=== PATIENT | female | born 1960 | race African-American/Black ===

== ENCOUNTER 2016-08-27 09:37 | Inpatient (IN) | payer OTHER ==
[2016-08-27 10:08] VITALS: BMI 31.1
--- NOTE | 2016-08-27 12:00 | HP ---
CIWA Score - CIWA Score Nausea/Vomitin Muscle Tremors: 3 Anxiety: 4-Mod. Anxious/Guarded Agitation: 4-Moderately Restless Paroxysmal Sweats: 3 Orientation: 0-Oriented Tacttile Disturbances: 1-Very Mild Itch/Numbness Auditory Disturbances: 0-None Visual Disturbances: 0-None Headache: 0-None Present CIWA-Ar Total Score: 18 Admission ROS BHS - HPI Chief Complaint: WITHDRAWAL SX Allergies/Adverse Reactions: Allergies Allergy/AdvReac Type Severity Reaction Status Date / Time Fish Containing Products Allergy Severe Swelling Verified 08/27/16 10:21 No Known Drug Allergies Allergy Verified 08/27/16 10:21 History of Present Illness: 56 YO F WITH LONG HISTORY OF DRUG AND ETOH DEPENDENCE IS ADMITTED FOR DETOX. PATIENT HAS BEEN IN PREVIOUS DETOX, REPORTS ONE YEAR OF SOBRIETY. Exam Limitations: No Limitations - Ebola screening Have you traveled outside of the country in the last 21 days: No (N) Have you had contact with anyone from an Ebola affected area: No Have you been sick,other than usual withdrawal symptoms: No Do you have a fever: No - Review of Systems Constitutional: Diaphoresis EENT: reports: No Symptoms Reported Respiratory: reports: Cough, Shortness of Breath (ASTHMA), Wheezing (ASTHMA) Cardiac: reports: No Symptoms Reported GI: reports: Diarrhea, Nausea, Vomiting, Abdominal cramping : reports: Frequency (CURRENTLY BEING TREATED FOR A UTI) Musculoskeletal: reports: Joint Pain, Muscle Pain, Neck Pain Integumentary: reports: Sweating Neuro: reports: Tingling, Tremors, Other (FREQUENT BLACK OUTS) Endocrine: reports: Excessive Sweating, Intolerance to Cold, Increased Hunger, Increased Thirst Hematology: reports: Blood Clots (HISTORY OF LEFT LEG DVT 1982) Psychiatric: reports: No Sypmtoms Reported Other Systems: Reviewed and Negative Patient History - Patient Medical History Hx Anemia: Yes (sickle cell trait ) Hx Asthma: Yes Hx Chronic Obstructive Pulmonary Disease (COPD): No Hx Cancer: No Hx Cardiac Disorders: No Hx Congestive Heart Failure: No Hx Hypertension: No Hx Hypercholesterolemia: Yes Hx Pacemaker: No HX Cerebrovascular Accident: No Hx Seizures: No Hx Dementia: No Hx Diabetes: Yes Hx Gastrointestinal Disorders: No Hx Liver Disease: No Hx Genitourinary Disorders: No Hx Sexually Transmitted Disorders: No Hx Renal Disease (ESRD): No Hx Thyroid Disease: No Hx Human Immunodeficiency Virus (HIV): No (NEGATIVE HX) Hx Hepatitis C: Yes (undetected. diagonosed 2001) Hx Depression: No Hx Suicide Attempt: Yes Hx Bipolar Disorder: Yes (PTSD) Hx Schizophrenia: Yes - Patient Surgical History Past Surgical History: Yes Hx Neurologic Surgery: No Hx Cataract Extraction: No Hx Cardiac Surgery: No Hx Lung Surgery: Yes (pneumothorax left lung 1982) Hx Breast Surgery: No Hx Breast Biopsy: No Hx Abdominal Surgery: No Hx Appendectomy: No Hx Cholecystectomy: No Hx Genitourinary Surgery: No Hx Section: No Hx Orthopedic Surgery: No Other Surgical History: umbilical hernia repair in 2003 Anesthesia Reaction: No - PPD History Previous Implant?: Yes Documented Results: Negative w/proof Implanted On Prior [facility] Admission?: Yes Date: 01/14/16 Results: 0 mm PPD to be Administered?: No - Reproductive History Patient is a Female of Child Bearing Age (11 -55 yrs old): No Last Menstrual Period: 03/24/08 Patient : No - Smoking Cessation Smoking history: Current every day smoker Have you smoked in the past 12 months: Yes Aproximately how many cigarettes per day: 10 Cigars Per Day: 0 Hx Chewing Tobacco Use: No Initiated information on smoking cessation: Yes 'Breaking Loose' booklet given: 08/27/16 - Substance & Tx. History Hx Alcohol Use: Yes Hx Substance Use: Yes Substance Use Type: Alcohol, Cocaine Hx Substance Use Treatment: Yes (DETOX AND REHAB) - Substances Abused Alcohol Route: Oral Frequency: Daily Amount used: 5th of tigist, 2 1/2 pint Vodka, 240z Cool light Age of first use: 14 Date of Last Use: 08/26/16 Cocaine Route: Smoking Frequency: Daily Amount used: $200 Age of first use: 24 Date of Last Use: 08/26/16 Family Disease History - Family Disease History Family Disease History: Diabetes: Mother (), Other: Father (), Mother, Brother Admission Physical Exam BHS - Vital Signs Vital Signs: Vital Signs - 24 hr 08/27/16 10:05 Temperature 97.2 F L Pulse Rate 80 Respiratory 16 Rate Blood Pressure 123/68 - Physical General Appearance: Yes: Within Normal Limits, Tremorous, Irritable, Sweating, Anxious HEENTM: Yes: Within Normal Limits Respiratory: Yes: Chest Non-Tender, Lungs Clear, Normal Breath Sounds Neck: Yes: Supple Breast: Yes: Breast Exam Deferred Cardiology: Yes: Regular Rhythm, Regular Rate, S1, S2 Abdominal: Yes: Non Tender, Soft, Protuberent Genitourinary: Yes: Within Normal Limits, Frequency Back: Yes: Within Normal Limits Musculoskeletal: Yes: Within Normal Limits Extremities: Yes: Tremors Neurological: Yes: Fully Oriented, Alert Integumentary: Yes: Diaphoresis Lymphatic: Yes: Within Normal Limits - Diagnostic (1) Alcohol dependence with uncomplicated withdrawal Current Visit: Yes Status: Chronic (2) Asthma Current Visit: Yes Status: Chronic Qualifiers: Asthma severity: mild intermittent Asthma complication type: uncomplicated Qualified Code(s): J45.20 - Mild intermittent asthma, uncomplicated (3) Cocaine dependence Current Visit: Yes Status: Chronic Qualifiers: Substance use status: uncomplicated Qualified Code(s): F14.20 - Cocaine dependence, uncomplicated (4) DM II (diabetes mellitus, type II), controlled Current Visit: Yes Status: Chronic Qualifiers: Diabetes mellitus complication status: without complication Diabetes mellitus technician terminal and repeater insulin use: with technician terminal and repeater use Qualified Code(s): E11.9 - Type 2 diabetes mellitus without complications; 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 of insulin (5) Hepatitis C Current Visit: No Status: Chronic Qualifiers: Viral hepatitis chronicity: chronic Hepatic coma status: without hepatic coma Qualified Code(s): B18.2 - Chronic viral hepatitis C (6) Nicotine dependence Current Visit: Yes Status: Chronic Qualifiers: Nicotine product type: cigarettes Substance use status: uncomplicated Qualified Code(s): F17.210 - Nicotine dependence, cigarettes, uncomplicated (7) Obesity (BMI 30.0-34.9) Current Visit: Yes Status: Chronic Cleared for Admission S - Detox or Rehab [facility] Level of Care: Medically Managed Detox Regimen/Protocol: Librium [facility] Breath Alcohol Content Breath Alcohol Content: 0 Urine Pregancy Test - Result Urine Test Results: Negative- NO Line Present Urine Drug Screen - Results Drug Screen Negative: No
[2016-08-27] MEDS ORDERED: guaiFENesin/D-METHORPHAN HB 10 ML UNIT-DOSE CUPS PO PRN (12:21)
[2016-08-27] MEDS ORDERED: MENTHOL/PHENOL 1 EACH UD MM PRN (12:21)
[2016-08-27] MEDS ORDERED: hydrOXYzine PAMOATE 50 MG CAPSULE (FP) PO PRN (12:21)
[2016-08-27] MEDS ORDERED: NICOTINE POLACRILEX 2 MG GUM BC PRN (12:21)
[2016-08-27] MEDS ORDERED: IBUPROFEN 400 MG TABLET (FP) PO PRN (12:21)
[2016-08-27] MEDS ORDERED: LOPERAMIDE HCL 2 MG CAPSULE PO PRN (12:21)
[2016-08-27] MEDS ORDERED: chlordiazePOXIDE HCL 25 MG CAPSULE PO PRN (12:21)
[2016-08-27] MEDS ORDERED: MAG HYDROX/AL HYDROX/SIMETH 30 ML UNIT-DOSE CUP PO PRN (12:21)
[2016-08-27] MEDS ORDERED: MAGNESIUM HYDROX 2400MG/30ML ORAL SUSPENSION 30 ML CUP PO PRN (12:21)
[2016-08-27] MEDS ORDERED: MAGNESIUM CITRATE 300 ML BOTTLE PO PRN (12:21)
[2016-08-27] MEDS ORDERED: P-EPHED 60MG/TRIPROLIDI 2.5MG TABLET PO PRN (12:21)
[2016-08-27] MEDS ORDERED: ALBUTEROL SO4 6.7 GM HFA INHALER IH PRN (12:26)
[2016-08-27] MEDS ORDERED: chlordiazePOXIDE HCL 25 MG CAPSULE PO ONE (12:45)
[2016-08-27] MEDS: NICOTINE 21 MG/24 HOURS TOPICAL PATCH TD SCH (13:49)
--- NOTE | 2016-08-27 14:47 | PN ---
[facility] Progress Note Note: Psychiatry Attending's note: Patient refused to talk to this racebook writer. Made aware of request fo psychiatric evaluation. "I don't have to talk to you.I don't need a psychiatrist." Nursing staff is made aware.
[2016-08-27] MEDS ORDERED: INSULIN (NOVOLOG) ASPART 100 UNITS/ML 10ML VIAL ONE ×2 (17:00→21:10)
[2016-08-27] MEDS ORDERED: INSULIN (NOVOLOG MIX 70/30) 100 UNITS/ML MDV SQ ONE (17:14)
[2016-08-27] MEDS: metFORMIN HCL 500 MG TABLET (FP) PO SCH (17:37)
[2016-08-27] MEDS: chlordiazePOXIDE HCL 25 MG CAPSULE PO SCH ×2 (17:38→22:00)
[2016-08-27] MEDS: INSULIN (NOVOLOG MIX 70/30) 100 UNITS/ML MDV SQ SCH (17:42)
[2016-08-27] MEDS: INSULIN (NOVOLOG) ASPART 100 UNITS/ML 10ML VIAL SQ SCH ×2 (17:43→21:14)
[2016-08-27] MEDS: SULFAMETHOXAZOLE/TRIMETHOPRIM 800MG/160MG D.S. TABLET PO SCH (21:12)
[2016-08-27] MEDS: THIAMINE HCL 100 MG TABLET (FP) PO SCH (21:13)
[2016-08-27] MEDS: ATORVASTATIN CA 40 MG TABLET (FP) PO SCH (21:13)
[2016-08-27 22:52] LABS: URINE APPEARANCE CLEAR; URINE BILIRUBIN NEGATIVE (NEGATIVE); URINE COLOR LTYELLOW; URINE GLUCOSE (UA) 3+ (NEGATIVE); URINE KETONE TRACE (NEGATIVE); URINE NITRITE NEGATIVE (NEGATIVE); URINE PROTEIN NEGATIVE (NEGATIVE); URINE UROBILINOGEN NEGATIVE E.U./dl (0.2-1.0)
[2016-08-27 22:57] LABS: URINE BLOOD 1+ (NEGATIVE); URINE LEUK ESTERASE TRACE (NEGATIVE)
[2016-08-27 23:04] LABS: URINE BACTERIA RARE /hpf (NONE SEEN); URINE HYALINE CAST 1 /lpf; URINE MUCUS RARE; URINE RBC 1 /hpf (0-3); URINE WBC <1 /hpf (3-5)
[2016-08-28] MEDS: chlordiazePOXIDE HCL 25 MG CAPSULE PO SCH ×4 (05:27→23:13)
[2016-08-28] MEDS ORDERED: INSULIN (NOVOLOG) ASPART 100 UNITS/ML 10ML VIAL ONE ×3 (07:19→16:45)
[2016-08-28] MEDS: INSULIN (NOVOLOG MIX 70/30) 100 UNITS/ML MDV SQ SCH ×2 (07:48→16:55)
[2016-08-28] MEDS: metFORMIN HCL 500 MG TABLET (FP) PO SCH ×2 (07:48→16:51)
[2016-08-28] MEDS: INSULIN (NOVOLOG) ASPART 100 UNITS/ML 10ML VIAL SQ SCH ×3 (07:49→16:56)
--- NOTE | 2016-08-28 10:22 | PN ---
S CIWA - CIWA Score Nausea/Vomitin-No Nausea/No Vomiting Muscle Tremors: 4-Moderate,w/Arms Extend Anxiety: 4-Mod. Anxious/Guarded Agitation: 4-Moderately Restless Paroxysmal Sweats: 3 Orientation: 0-Oriented Tacttile Disturbances: 0-None Auditory Disturbances: 0-None Visual Disturbances: 0-None Headache: 1-Very Mild CIWA-Ar Total Score: 16 BHS Progress Note (SOAP) Subjective: irritable agitation anxiety sweats interrupted sleep Objective: 08/28/16 10:21 Vital Signs Temperature 96.3 F L 08/28/16 06:53 Pulse Rate 63 08/28/16 06:53 Respiratory Rate 16 08/28/16 06:53 Blood Pressure 119/66 08/28/16 06:53 O2 Sat by Pulse Oximetry (%) Laboratory Tests 08/27/16 08/28/16 22:40 05:26 POC Glucometer 313 Urine Color Ltyellow Urine Appearance Clear Urine pH 6.0 Ur Specific [place] 1.020 Urine Protein Negative Urine Glucose (UA) 3+ H Urine Ketones Trace H Urine Blood 1+ H Urine Nitrite Negative Urine Bilirubin Negative Urine Urobilinogen Negative Ur Leukocyte Esterase Trace H Urine RBC 1 Urine WBC <1 Ur Epithelial Cells Rare Urine Bacteria Rare Hyaline Casts 1 Urine Mucus Rare labs pending awake/alert ambulating no acute distress Assessment: 08/28/16 10:22 withdrawal sx Plan: continue detox increase fluids labs pending
[2016-08-28] MEDS: PRENATAL VITAMINS W/ FOLIC ACID TABLET (FP) PO SCH (10:44)
[2016-08-28] MEDS: SULFAMETHOXAZOLE/TRIMETHOPRIM 800MG/160MG D.S. TABLET PO SCH ×2 (10:44→21:40)
[2016-08-28] MEDS: ASPIRIN COATED 81 MG TABLET.EC PO SCH (10:44)
[2016-08-28] MEDS: NICOTINE 21 MG/24 HOURS TOPICAL PATCH TD SCH (10:48)
[2016-08-28 10:59] LABS: MCH 30.6 pg (25.7-33.7); MCHC 33.8 g/dl (32.0-36.0); MEAN CELL VOLUME 90.5 fl (80-96); MEAN PLT VOLUME 8.5 fl (7.5-11.1); PLATELET COUNT 230 K/MM3 (134-434); RDW 14.1 % (11.6-15.6); WHITE BLOOD COUNT 4.6 K/mm3 (4.0-10.0)
[2016-08-28 11:33] LABS: ALBUMIN 2.9 g/dl (3.4-5.0); ALK PHOS 77 U/L (45-117); ANION GAP 4 (8-16); BILIRUBIN,TOTAL 0.4 mg/dL (0.2-1.0); CALCIUM 8.3 mg/dL (8.5-10.1); CO2 26 mmol/L (21-32); CREATININE 0.9 mg/dL (0.55-1.02); SGOT/AST 10 U/L (15-37); SGPT/ALT 16 U/L (12-78); TOT PROT 5.9 g/dl (6.4-8.2)
[2016-08-28 12:01] LABS: GLUCOSE,RANDOM 359 mg/dL (74-106)
--- NOTE | 2016-08-28 13:09 | PN ---
[facility] Progress Note Note: Psychiatry Attending's note: Renewed attempt for psychiatric evaluation. Patient refused.Nursing staff made aware.
[2016-08-28] MEDS: THIAMINE HCL 100 MG TABLET (FP) PO SCH (21:40)
[2016-08-28] MEDS: ATORVASTATIN CA 40 MG TABLET (FP) PO SCH (21:40)
[2016-08-28] MEDS: diphenhydrAMINE HCL 50 MG CAPSULE PO PRN (21:42)
[2016-08-29] MEDS: chlordiazePOXIDE HCL 25 MG CAPSULE PO SCH ×2 (05:46→11:04)
[2016-08-29] MEDS: metFORMIN HCL 500 MG TABLET (FP) PO SCH ×2 (07:00→17:52)
[2016-08-29] MEDS: INSULIN (NOVOLOG MIX 70/30) 100 UNITS/ML MDV SQ SCH ×2 (07:00→17:53)
[2016-08-29] MEDS ORDERED: INSULIN (NOVOLOG) ASPART 100 UNITS/ML 10ML VIAL ONE (08:51)
[2016-08-29] MEDS: INSULIN (NOVOLOG) ASPART 100 UNITS/ML 10ML VIAL SQ SCH ×3 (08:56→16:53)
--- NOTE | 2016-08-29 10:37 | PN ---
[facility] CIWA - CIWA Score Nausea/Vomitin Muscle Tremors: 3 Anxiety: 3 Agitation: 3 Paroxysmal Sweats: 3 Orientation: 0-Oriented Tacttile Disturbances: 2-Mild Itch/Numbness/Burn Auditory Disturbances: 0-None Visual Disturbances: 0-None Headache: 0-None Present CIWA-Ar Total Score: 16 S Progress Note (SOAP) Subjective: interrupted sleep , sweats , shakes, joint pains Objective: 08/29/16 10:34 Vital Signs Temperature 97.5 F L 08/29/16 06:36 Pulse Rate 60 08/29/16 06:36 Respiratory Rate 16 08/29/16 06:36 Blood Pressure 141/71 08/29/16 06:36 O2 Sat by Pulse Oximetry (%) Laboratory Tests 08/27/16 08/27/16 08/27/16 10:47 16:40 21:05 WBC RBC Hgb Hct MCV MCHC RDW Plt Count MPV Sodium Potassium Chloride Carbon Dioxide Anion Gap BUN Creatinine Creat Clearance w eGFR POC Glucometer 518 > 600 156 Random Glucose Calcium Total Bilirubin AST ALT Alkaline Phosphatase Total Protein Albumin Urine Color Urine Appearance Urine pH Ur Specific [place] Urine Protein Urine Glucose (UA) Urine Ketones Urine Blood Urine Nitrite Urine Bilirubin Urine Urobilinogen Ur Leukocyte Esterase Urine RBC Urine WBC Ur Epithelial Cells Urine Bacteria Hyaline Casts Urine Mucus RPR Titer 08/27/16 08/28/16 08/28/16 22:40 05:26 06:30 WBC 4.6 D RBC 3.57 L Hgb 10.9 Hct 32.3 L MCV 90.5 MCHC 33.8 RDW 14.1 Plt Count 230 MPV 8.5 Sodium Potassium Chloride Carbon Dioxide Anion Gap BUN Creatinine Creat Clearance w eGFR POC Glucometer 313 Random Glucose Calcium Total Bilirubin AST ALT Alkaline Phosphatase Total Protein Albumin Urine Color Ltyellow Urine Appearance Clear Urine pH 6.0 Ur Specific [place] 1.020 Urine Protein Negative Urine Glucose (UA) 3+ H Urine Ketones Trace H Urine Blood 1+ H Urine Nitrite Negative Urine Bilirubin Negative Urine Urobilinogen Negative Ur Leukocyte Esterase Trace H Urine RBC 1 Urine WBC <1 Ur Epithelial Cells Rare Urine Bacteria Rare Hyaline Casts 1 Urine Mucus Rare RPR Titer 08/28/16 08/28/16 08/28/16 06:30 06:30 11:39 WBC RBC Hgb Hct MCV MCHC RDW Plt Count MPV Sodium 136 Potassium 4.4 Chloride 106 Carbon Dioxide 26 Anion Gap 4 L BUN 13 Creatinine 0.9 D Creat Clearance w eGFR > 60 POC Glucometer 163 Random Glucose 359 H* Calcium 8.3 L Total Bilirubin 0.4 AST 10 L ALT 16 D Alkaline Phosphatase 77 Total Protein 5.9 L Albumin 2.9 L Urine Color Urine Appearance Urine pH Ur Specific [place] Urine Protein Urine Glucose (UA) Urine Ketones Urine Blood Urine Nitrite Urine Bilirubin Urine Urobilinogen Ur Leukocyte Esterase Urine RBC Urine WBC Ur Epithelial Cells Urine Bacteria Hyaline Casts Urine Mucus RPR Titer Nonreactive 08/28/16 08/28/16 16:37 21:35 WBC RBC Hgb Hct MCV MCHC RDW Plt Count MPV Sodium Potassium Chloride Carbon Dioxide Anion Gap BUN Creatinine Creat Clearance w eGFR POC Glucometer 358 180 Random Glucose Calcium Total Bilirubin AST ALT Alkaline Phosphatase Total Protein Albumin Urine Color Urine Appearance Urine pH Ur Specific [place] Urine Protein Urine Glucose (UA) Urine Ketones Urine Blood Urine Nitrite Urine Bilirubin Urine Urobilinogen Ur Leukocyte Esterase Urine RBC Urine WBC Ur Epithelial Cells Urine Bacteria Hyaline Casts Urine Mucus RPR Titer pt aox3 in nad lying in bed 08/29/16 10:36 Assessment: 08/29/16 10:35 withdrawl sxs Plan: cont. detox increase fluids motrin prn flerxeril 10mg tid /prn
[2016-08-29] MEDS: SULFAMETHOXAZOLE/TRIMETHOPRIM 800MG/160MG D.S. TABLET PO SCH ×2 (11:04→22:11)
[2016-08-29] MEDS: ASPIRIN COATED 81 MG TABLET.EC PO SCH (11:04)
[2016-08-29] MEDS: PRENATAL VITAMINS W/ FOLIC ACID TABLET (FP) PO SCH (11:05)
[2016-08-29] MEDS: NICOTINE 21 MG/24 HOURS TOPICAL PATCH TD SCH (11:05)
[2016-08-29] MEDS: chlordiazePOXIDE 5 MG CAPSULE PO SCH ×2 (17:52→22:10)
[2016-08-29] MEDS: ATORVASTATIN CA 40 MG TABLET (FP) PO SCH (22:09)
[2016-08-29] MEDS: THIAMINE HCL 100 MG TABLET (FP) PO SCH (22:10)
[2016-08-29] MEDS: CYCLOBENZAPRINE HCL 10 MG TABLET (FP) PO PRN (22:10)
[2016-08-30] MEDS: chlordiazePOXIDE 5 MG CAPSULE PO SCH ×2 (05:53→11:21)
[2016-08-30] MEDS ORDERED: INSULIN (NOVOLOG) ASPART 100 UNITS/ML 10ML VIAL ONE (09:03)
[2016-08-30] MEDS: metFORMIN HCL 500 MG TABLET (FP) PO SCH ×2 (09:04→17:32)
[2016-08-30] MEDS: INSULIN (NOVOLOG) ASPART 100 UNITS/ML 10ML VIAL SQ SCH ×3 (09:05→17:34)
[2016-08-30] MEDS: INSULIN (NOVOLOG MIX 70/30) 100 UNITS/ML MDV SQ SCH ×2 (09:05→17:34)
--- NOTE | 2016-08-30 11:18 | PN ---
BHS Progress Note (SOAP) Subjective: irritable agitation sweats I dont want my finger poked so many times. Objective: 08/30/16 11:11 Vital Signs Temperature 97.7 F 08/30/16 10:11 Pulse Rate 62 08/30/16 10:11 Respiratory Rate 20 08/30/16 10:11 Blood Pressure 90/60 08/30/16 10:11 O2 Sat by Pulse Oximetry (%) Laboratory Tests 08/27/16 08/27/16 08/27/16 10:47 16:40 21:05 WBC RBC Hgb Hct MCV MCHC RDW Plt Count MPV Sodium Potassium Chloride Carbon Dioxide Anion Gap BUN Creatinine Creat Clearance w eGFR POC Glucometer 518 > 600 156 Random Glucose Calcium Total Bilirubin AST ALT Alkaline Phosphatase Total Protein Albumin Urine Color Urine Appearance Urine pH Ur Specific [place] Urine Protein Urine Glucose (UA) Urine Ketones Urine Blood Urine Nitrite Urine Bilirubin Urine Urobilinogen Ur Leukocyte Esterase Urine RBC Urine WBC Ur Epithelial Cells Urine Bacteria Hyaline Casts Urine Mucus RPR Titer 08/27/16 08/28/16 08/28/16 22:40 05:26 06:30 WBC 4.6 D RBC 3.57 L Hgb 10.9 Hct 32.3 L MCV 90.5 MCHC 33.8 RDW 14.1 Plt Count 230 MPV 8.5 Sodium Potassium Chloride Carbon Dioxide Anion Gap BUN Creatinine Creat Clearance w eGFR POC Glucometer 313 Random Glucose Calcium Total Bilirubin AST ALT Alkaline Phosphatase Total Protein Albumin Urine Color Ltyellow Urine Appearance Clear Urine pH 6.0 Ur Specific [place] 1.020 Urine Protein Negative Urine Glucose (UA) 3+ H Urine Ketones Trace H Urine Blood 1+ H Urine Nitrite Negative Urine Bilirubin Negative Urine Urobilinogen Negative Ur Leukocyte Esterase Trace H Urine RBC 1 Urine WBC <1 Ur Epithelial Cells Rare Urine Bacteria Rare Hyaline Casts 1 Urine Mucus Rare RPR Titer 08/28/16 08/28/16 08/28/16 06:30 06:30 11:39 WBC RBC Hgb Hct MCV MCHC RDW Plt Count MPV Sodium 136 Potassium 4.4 Chloride 106 Carbon Dioxide 26 Anion Gap 4 L BUN 13 Creatinine 0.9 D Creat Clearance w eGFR > 60 POC Glucometer 163 Random Glucose 359 H* Calcium 8.3 L Total Bilirubin 0.4 AST 10 L ALT 16 D Alkaline Phosphatase 77 Total Protein 5.9 L Albumin 2.9 L Urine Color Urine Appearance Urine pH Ur Specific [place] Urine Protein Urine Glucose (UA) Urine Ketones Urine Blood Urine Nitrite Urine Bilirubin Urine Urobilinogen Ur Leukocyte Esterase Urine RBC Urine WBC Ur Epithelial Cells Urine Bacteria Hyaline Casts Urine Mucus RPR Titer Nonreactive 08/28/16 08/28/16 08/29/16 16:37 21:35 06:39 WBC RBC Hgb Hct MCV MCHC RDW Plt Count MPV Sodium Potassium Chloride Carbon Dioxide Anion Gap BUN Creatinine Creat Clearance w eGFR POC Glucometer 358 180 299 Random Glucose Calcium Total Bilirubin AST ALT Alkaline Phosphatase Total Protein Albumin Urine Color Urine Appearance Urine pH Ur Specific [place] Urine Protein Urine Glucose (UA) Urine Ketones Urine Blood Urine Nitrite Urine Bilirubin Urine Urobilinogen Ur Leukocyte Esterase Urine RBC Urine WBC Ur Epithelial Cells Urine Bacteria Hyaline Casts Urine Mucus RPR Titer 08/29/16 08/29/16 08/30/16 11:47 16:21 08:59 WBC RBC Hgb Hct MCV MCHC RDW Plt Count MPV Sodium Potassium Chloride Carbon Dioxide Anion Gap BUN Creatinine Creat Clearance w eGFR POC Glucometer 109 223 192 Random Glucose Calcium Total Bilirubin AST ALT Alkaline Phosphatase Total Protein Albumin Urine Color Urine Appearance Urine pH Ur Specific [place] Urine Protein Urine Glucose (UA) Urine Ketones Urine Blood Urine Nitrite Urine Bilirubin Urine Urobilinogen Ur Leukocyte Esterase Urine RBC Urine WBC Ur Epithelial Cells Urine Bacteria Hyaline Casts Urine Mucus RPR Titer awake/alert ambulating no acute distress Assessment: 08/30/16 11:13 withdrawal sx Plan: continue detox increase fluids encouraged to comply to medication regimen and MD orders. d/c in am
[2016-08-30] MEDS: PRENATAL VITAMINS W/ FOLIC ACID TABLET (FP) PO SCH (11:20)
[2016-08-30] MEDS: SULFAMETHOXAZOLE/TRIMETHOPRIM 800MG/160MG D.S. TABLET PO SCH ×2 (11:21→23:05)
[2016-08-30] MEDS: NICOTINE 21 MG/24 HOURS TOPICAL PATCH TD SCH (11:21)
[2016-08-30] MEDS: ASPIRIN COATED 81 MG TABLET.EC PO SCH (11:21)
[2016-08-30] MEDS: chlordiazePOXIDE HCL 10 MG CAPSULE PO SCH ×2 (17:32→23:06)
[2016-08-30] MEDS: THIAMINE HCL 100 MG TABLET (FP) PO SCH (23:06)
[2016-08-30] MEDS: ATORVASTATIN CA 40 MG TABLET (FP) PO SCH (23:06)
[2016-08-31] MEDS: diphenhydrAMINE HCL 50 MG CAPSULE PO PRN (01:24)
[2016-08-31] MEDS: chlordiazePOXIDE HCL 10 MG CAPSULE PO SCH (05:39)
[2016-08-31] MEDS: ACETAMINOPHEN 325 MG TABLET (FP) PO PRN ×2 (05:40→10:22)
[2016-08-31] MEDS ORDERED: INSULIN (NOVOLOG) ASPART 100 UNITS/ML 10ML VIAL ONE (06:41)
[2016-08-31] MEDS: metFORMIN HCL 500 MG TABLET (FP) PO SCH (06:52)
[2016-08-31] MEDS: INSULIN (NOVOLOG MIX 70/30) 100 UNITS/ML MDV SQ SCH (07:04)
[2016-08-31] MEDS: INSULIN (NOVOLOG) ASPART 100 UNITS/ML 10ML VIAL SQ SCH (07:30)
--- NOTE | 2016-08-31 08:19 | DS ---
[facility] Detox Discharge Summary Admission Date: 08/27/16 Discharge Date: 08/31/16 - History Present History: Alcohol Dependence, Cocaine Dependence - Physical Exam Results Vital Signs: Vital Signs Temperature 97.7 F 08/31/16 06:00 Pulse Rate 78 08/31/16 06:00 Respiratory Rate 18 08/31/16 06:00 Blood Pressure 100/69 08/31/16 06:00 O2 Sat by Pulse Oximetry (%) - Treatment Hospital Course: Detox Protocol Followed, Detoxed Safely, Responded well, Discharged Condition Good, Rehab Referral Accepted - Medication Discharge Medications: Ambulatory Orders Aspirin [ASA -] 81 mg PO DAILY #30 tab.chew 07/02/15 Albuterol Sulfate Inhaler - [Ventolin HFA Inhaler -] 2 inh PO Q4H PRN 03/30/16 Atorvastatin Ca [Lipitor] 40 mg PO DAILY 03/30/16 Metformin HCl [Glucophage -] 500 mg PO BID 03/30/16 Insulin NPH Hum/Reg Insulin Hm [Humulin 70-30 Vial] 20 unit SQ ACDIN 06/28/16 Insulin NPH Hum/Reg Insulin Hm [Humulin 70-30 Vial] 40 unit SQ AM 06/28/16 Sulfamethoxazole/Trimethoprim [Bactrim Ds -] 1 tab PO BID 08/27/16 - Diagnosis (1) Alcohol dependence with uncomplicated withdrawal Current Visit: Yes Status: Chronic (2) Asthma Current Visit: Yes Status: Chronic Qualifiers: Asthma severity: mild intermittent Asthma complication type: uncomplicated Qualified Code(s): J45.20 - Mild intermittent asthma, uncomplicated (3) Cocaine dependence Current Visit: Yes Status: Chronic Qualifiers: Substance use status: uncomplicated Qualified Code(s): F14.20 - Cocaine dependence, uncomplicated (4) DM II (diabetes mellitus, type II), controlled Current Visit: Yes Status: Chronic Qualifiers: Diabetes mellitus complication status: without complication Diabetes mellitus fpc insulin use: with fpc use Qualified Code(s): E11.9 - Type 2 diabetes mellitus without complications (5) Nicotine dependence Current Visit: Yes Status: Chronic Qualifiers: Nicotine product type: cigarettes Substance use status: uncomplicated Qualified Code(s): F17.210 - Nicotine dependence, cigarettes, uncomplicated (6) Obesity (BMI 30.0-34.9) Current Visit: Yes Status: Chronic (7) Arthritis Current Visit: No Status: Chronic (8) Hepatitis C Current Visit: No Status: Chronic Qualifiers: Viral hepatitis chronicity: chronic Hepatic coma status: without hepatic coma Qualified Code(s): B18.2 - Chronic viral hepatitis C (9) PTSD (post-traumatic stress disorder) Current Visit: No Status: Chronic (10) Schizoaffective disorder Current Visit: No Status: Suspected (11) Schizoaffective disorder, bipolar type Current Visit: No Status: Suspected (12) Sickle cell trait Current Visit: No Status: Suspected - AMA Did Patient Leave Against Medical Advice: No
[2016-08-31] MEDS: SULFAMETHOXAZOLE/TRIMETHOPRIM 800MG/160MG D.S. TABLET PO SCH (10:21)
[2016-08-31] MEDS: PRENATAL VITAMINS W/ FOLIC ACID TABLET (FP) PO SCH (10:21)
[2016-08-31] MEDS: CYCLOBENZAPRINE HCL 10 MG TABLET (FP) PO PRN (10:21)
[2016-08-31] MEDS: ASPIRIN COATED 81 MG TABLET.EC PO SCH (10:21)
[2016-08-31 10:22] VITALS: BP 96/69; PULSE 76; TEMP 98.1
== END 2016-08-31 10:41 | disposition home or self-care (01) | DRG 774 ==
LOC: YASAS 09:37 → Y6N 11:17
PROVIDERS: ADMIT Internal Medicine; ATTEND Internal Medicine
PROC: HZ2ZZZZ Detoxification Services for Substance Abuse Treatment (ICD-10-PCS; principal; 2016-08-27)
DX: F10.230 Alcohol dependence with withdrawal, uncomplicated (principal); F14.20 Cocaine dependence, uncomplicated; F17.210 Nicotine dependence, cigarettes, uncomplicated; F43.10 Post-traumatic stress disorder, unspecified; F25.0 Schizoaffective disorder, bipolar type; J45.20 Mild intermittent asthma, uncomplicated; E11.9 Type 2 diabetes mellitus without complications; Z79.4 Long term (current) use of insulin; D57.3 Sickle-cell trait; E66.9 Obesity, unspecified; Z68.31 Body mass index [BMI] 31.0-31.9, adult; M12.9 Arthropathy, unspecified; B18.2 Chronic viral hepatitis C
CPT/HCPCS: 36415; 80053; 81003; 81015; 85027; 86593; 93005; 93010

== ENCOUNTER 2016-10-30 12:15 | Inpatient (IN) | payer OTHER ==
[2016-10-30 12:32] VITALS: BMI 31.2
--- NOTE | 2016-10-30 14:54 | HP ---
CIWA Score - CIWA Score Nausea/Vomitin (NAUSEA/DIARRHEA) Muscle Tremors: 3 Anxiety: 4-Mod. Anxious/Guarded Agitation: 3 Paroxysmal Sweats: 1-Minimal Palms Moist Orientation: 0-Oriented Tacttile Disturbances: 3-Moderate Itch/Numb/Burn Auditory Disturbances: 0-None Visual Disturbances: 0-None Headache: 2-Mild CIWA-Ar Total Score: 21 Admission ROS [facility] - HPI Chief Complaint: DETOX TX FOR ALCOHOL DEPENDENCE Allergies/Adverse Reactions: Allergies Allergy/AdvReac Type Severity Reaction Status Date / Time Fish Containing Products Allergy Severe Swelling Verified 10/30/16 13:39 No Known Drug Allergies Allergy Verified 10/30/16 13:39 History of Present Illness: 56 Y/O AA/FEMALE WITH A HX OF ALCOHOL AND COCAINE DEPENDENCE SEEKING DETOX [place] Exam Limitations: No Limitations - Ebola screening Have you traveled outside of the country in the last 21 days: No Have you had contact with anyone from an Ebola affected area: No Have you been sick,other than usual withdrawal symptoms: No Do you have a fever: No - Review of Systems Constitutional: Chills, Loss of Appetite, Night Sweats, Changes in sleep, Unintentional Wgt. Loss EENT: reports: Cataracts (OR GLAUCOMA BUT NOT SURE .), Blurred Vision, Nose Congestion, Sinus Pressure, Dental Problems (BROKEN TEETH/CAVITY/DECAY) Respiratory: reports: Shortness of Breath (HX ASTHMA), Wheezing Cardiac: reports: Chest Pain (SOMETIMES), Chest Tightness GI: reports: Constipated, Diarrhea, Nausea, Abdominal cramping : reports: No Symptoms Reported Musculoskeletal: reports: Back Pain, Joint Pain, Muscle Pain, Other (ARTHRITIS BOTH KNEES) Integumentary: reports: No Symptoms Reported Neuro: reports: Headache, Tremors, Unsteady Gait (KNEES LOCK UP SOMETIMES), Dizziness Endocrine: reports: Increased Hunger, Increased Thirst Hematology: reports: Anemia (SICKLE CELL TRAIT), Blood Clots (HX DVT IN 1982.... STOPPED COUMADIN 10 YRS AGO.), Easy Bruising Psychiatric: reports: Orientated x3, Anxious, Depressed (HX BIPOLAR/ SCHIZOAFFECTIVE DISORDER/PTSD) Other Systems: Reviewed and Negative Patient History - Patient Medical History Hx Anemia: Yes (sickle cell trait ) Hx Asthma: Yes Hx Chronic Obstructive Pulmonary Disease (COPD): No Hx Cancer: No Hx Cardiac Disorders: No Hx Congestive Heart Failure: No Hx Hypertension: No (BUT ON/OFF) Hx Hypercholesterolemia: Yes Hx Pacemaker: No HX Cerebrovascular Accident: No Hx Seizures: No Hx Dementia: No Hx Diabetes: Yes (On meds...METFORMIN 500 MG PO BID) Hx Gastrointestinal Disorders: No Hx Liver Disease: No Hx Genitourinary Disorders: No Hx Sexually Transmitted Disorders: No Hx Renal Disease (ESRD): No Hx Thyroid Disease: No Hx Human Immunodeficiency Virus (HIV): No (NEGATIVE HX) Hx Hepatitis C: Yes (undetected. diagonosed 2001) Hx Depression: Yes (NOT ON MEDS) Hx Suicide Attempt: No Hx Bipolar Disorder: Yes (PTSD) Hx Schizophrenia: Yes (SCHIZOAFFECTIVE) - Patient Surgical History Past Surgical History: Yes Hx Neurologic Surgery: No Hx Cataract Extraction: No Hx Cardiac Surgery: No Hx Lung Surgery: Yes (pneumothorax left lung 1982) Hx Breast Surgery: No Hx Breast Biopsy: No Hx Abdominal Surgery: No Hx Appendectomy: No Hx Cholecystectomy: No Hx Genitourinary Surgery: No Hx Section: No Hx Orthopedic Surgery: No Other Surgical History: umbilical hernia repair in 2003 Anesthesia Reaction: No - PPD History Previous Implant?: Yes Documented Results: Negative w/proof Implanted On Prior [facility] Admission?: Yes Date: 01/14/16 Results: 0 MM PPD to be Administered?: No - Reproductive History Patient is a Female of Child Bearing Age (11 -55 yrs old): Yes (MENOPAUSAL WOMAN ) Last Menstrual Period: 03/24/08 LMP comment: 10 YRS AGO Patient : No - Smoking Cessation Smoking history: Current every day smoker Have you smoked in the past 12 months: Yes Aproximately how many cigarettes per day: 10 Cigars Per Day: 0 Hx Chewing Tobacco Use: No Initiated information on smoking cessation: Yes 'Breaking Loose' booklet given: 10/30/16 - Substance & Tx. History Hx Alcohol Use: Yes (VODKA/ZEFERINO/BEER) Hx Substance Use: Yes (CRACK) Substance Use Type: Alcohol, Cocaine Hx Substance Use Treatment: Yes ([facility]-DETOX) - Substances Abused Alcohol Route: Oral Frequency: Daily Amount used: 1 PINT VODKA/ 2 24 OZ BEERS Age of first use: 14 Date of Last Use: 10/29/16 Crack Route: Smoking Frequency: Daily Amount used: $200-300 Age of first use: 24 Date of Last Use: 10/28/16 Family Disease History - Family Disease History Family Disease History: Diabetes: Mother (), Other: Father (), Mother, Brother Admission Physical Exam [facility] - Vital Signs Vital Signs: Vital Signs - 24 hr 10/30/16 12:27 Temperature 96.5 F L Pulse Rate 79 Respiratory 18 Rate Blood Pressure 139/93 - Physical General Appearance: Yes: Moderate Distress, Irritable, Anxious HEENTM: Yes: EOMI, Normocephalic, JANINA, Pharynx Normal Respiratory: Yes: Chest Non-Tender, Lungs Clear, Normal Breath Sounds, No Respiratory Distress Neck: Yes: Supple, Trachea in good position Breast: Yes: Breast Exam Deferred Cardiology: Yes: Regular Rhythm, Regular Rate, S1, S2 Abdominal: Yes: Normal Bowel Sounds, Non Tender, Soft Genitourinary: Yes: Other (N/C) Back: Yes: Within Normal Limits Musculoskeletal: Yes: full range of Motion, Gait Steady Extremities: Yes: Normal Range of Motion, Non-Tender Neurological: Yes: orthotic/prosthetic clinician II-XII NML intact, Fully Oriented, Alert, Motor Strength 5/5 Integumentary: Yes: Dry, Warm Lymphatic: Yes: Within Normal Limits - Diagnostic (1) Alcohol dependence with uncomplicated withdrawal Current Visit: Yes Status: Acute (2) Cocaine dependence Current Visit: Yes Status: Acute Qualifiers: Substance use status: uncomplicated Qualified Code(s): F14.20 - Cocaine dependence, uncomplicated (3) DM II (diabetes mellitus, type II), controlled Current Visit: Yes Status: Chronic Qualifiers: Diabetes mellitus complication status: without complication Diabetes mellitus bed bug exterminator insulin use: with bed bug exterminator use Qualified Code(s): E11.9 - Type 2 diabetes mellitus without complications (4) Hepatitis C Current Visit: Yes Status: Chronic Qualifiers: Viral hepatitis chronicity: chronic Hepatic coma status: without hepatic coma Qualified Code(s): B18.2 - Chronic viral hepatitis C (5) Nicotine dependence Current Visit: Yes Status: Chronic Qualifiers: Nicotine product type: cigarettes Substance use status: uncomplicated Qualified Code(s): F17.210 - Nicotine dependence, cigarettes, uncomplicated (6) Sickle cell trait Current Visit: Yes Status: Suspected (7) Asthma Current Visit: Yes Status: Chronic Qualifiers: Asthma severity: mild intermittent Asthma complication type: uncomplicated Qualified Code(s): J45.20 - Mild intermittent asthma, uncomplicated (8) Obesity (BMI 30.0-34.9) Current Visit: Yes Status: Chronic (9) Hypercholesterolemia Current Visit: Yes Status: Chronic (10) Arthritis Current Visit: Yes Status: Chronic Cleared for Admission [facility] - Detox or Rehab [facility] Level of Care: Medically Managed Detox Regimen/Protocol: Librium S Breath Alcohol Content Breath Alcohol Content: 0 Urine Pregancy Test - Result Urine Test Results: Negative- NO Line Present Urine Drug Screen - Results Drug Screen Negative: No Urine Drug Screen Results: DIANNE-Cocaine
[2016-10-30] MEDS ORDERED: LOPERAMIDE HCL 2 MG CAPSULE PO PRN (15:12)
[2016-10-30] MEDS ORDERED: MENTHOL/PHENOL 1 EACH UD MM PRN (15:12)
[2016-10-30] MEDS ORDERED: MAGNESIUM CITRATE 300 ML BOTTLE PO PRN (15:12)
[2016-10-30] MEDS ORDERED: chlordiazePOXIDE HCL 25 MG CAPSULE PO PRN (15:12)
[2016-10-30] MEDS ORDERED: NICOTINE POLACRILEX 2 MG GUM BC PRN (15:12)
[2016-10-30] MEDS ORDERED: hydrOXYzine PAMOATE 25 MG CAPSULE (FP) PO PRN (15:12)
[2016-10-30] MEDS ORDERED: P-EPHED 60MG/TRIPROLIDI 2.5MG TABLET PO PRN (15:12)
[2016-10-30] MEDS ORDERED: MAGNESIUM HYDROX 2400MG/30ML ORAL SUSPENSION 30 ML CUP PO PRN (15:12)
[2016-10-30] MEDS ORDERED: MAG HYDROX/AL HYDROX/SIMETH 30 ML UNIT-DOSE CUP PO PRN (15:12)
[2016-10-30] MEDS ORDERED: IBUPROFEN 400 MG TABLET (FP) PO PRN (15:12)
[2016-10-30] MEDS ORDERED: diphenhydrAMINE HCL 50 MG CAPSULE PO PRN (15:12)
[2016-10-30] MEDS ORDERED: ALBUTEROL SO4 6.7 GM HFA INHALER IH PRN (15:15)
[2016-10-30] MEDS ORDERED: chlordiazePOXIDE HCL 25 MG CAPSULE PO ONE (16:30)
[2016-10-30] MEDS: INSULIN (NOVOLOG MIX 70/30) 100 UNITS/ML MDV SQ SCH (17:36)
[2016-10-30] MEDS: metFORMIN HCL 500 MG TABLET (FP) PO SCH (17:36)
[2016-10-30] MEDS: chlordiazePOXIDE HCL 25 MG CAPSULE PO SCH ×2 (17:36→22:36)
[2016-10-30] MEDS: NICOTINE 14 MG/24 HOURS TOPICAL PATCH TD SCH (17:37)
[2016-10-30] MEDS: ACETAMINOPHEN 325 MG TABLET (FP) PO PRN (17:38)
[2016-10-30] MEDS: guaiFENesin/D-METHORPHAN HB 10 ML UNIT-DOSE CUPS PO PRN ×2 (17:38→22:40)
[2016-10-30 20:16] LABS: URINE APPEARANCE CLEAR; URINE BILIRUBIN NEGATIVE (NEGATIVE); URINE BLOOD NEGATIVE (NEGATIVE); URINE COLOR STRAW; URINE GLUCOSE (UA) 3+ (NEGATIVE); URINE KETONE NEGATIVE (NEGATIVE); URINE LEUK ESTERASE NEGATIVE (NEGATIVE); URINE NITRITE NEGATIVE (NEGATIVE); URINE PROTEIN NEGATIVE (NEGATIVE); URINE UROBILINOGEN NEGATIVE E.U./dl (0.2-1.0)
[2016-10-30] MEDS: THIAMINE HCL 100 MG TABLET (FP) PO SCH (22:36)
[2016-10-31] MEDS: chlordiazePOXIDE HCL 25 MG CAPSULE PO SCH ×4 (05:49→22:50)
--- NOTE | 2016-10-31 07:36 | CONSULT ---
[facility] Psychiatric Consult - Data Date of interview: 10/31/16 Admission source: [facility] Identifying data: This is 56 years old female with no psychiatric hospitalization history, history of Scizoaffective disorder intoictaed with: Alcohol, Cocaine, Nicotine Substance Abuse History: - Smoking Cessation. Smoking history: Current every day smoker. Have you smoked in the past 12 months: Yes. Aproximately how many cigarettes per day: 10. Cigars Per Day: 0. Hx Chewing Tobacco Use: No. Initiated information on smoking cessation: Yes. 'Breaking Loose' booklet given : 10/30/16. - Substance & Tx. History. Hx Alcohol Use: Yes (VODKA/ZEFERINO/BEER) . Hx Substance Use: Yes (CRACK). Substance Use Type: Alcohol, Cocaine. Hx Substance Use Treatment: Yes ([facility]-DETOX). - Substances Abused. Alcohol. Route: Oral. Frequency: Daily. Amount used: 1 PINT VODKA/ 2 24 OZ BEERS. Age of first use: 14. Date of Last Use: 10/29/16. Crack. Route: Smoking. Frequency: Daily. Amount used: $200-300. Age of first use: 24. Date of Last Use: 10/28/16 Medical History: Asthma, Arthritis, DM-2, HepC+, Hypercholesterolemia, Obesity, Sick;e cell trait histoiry Psychiatric History: Patient reports history of, PTSD, Schizoaffective disorder with no history of psychiatric admissions, reports currenly taking: no medications Physical/Sexual Abuse/Trauma History: Denies Additional Comment: Observation. Detox Unit Care Protocol Mental Status Exam - Mental Status Exam Alert and Oriented to: Person Patient Appearance: Unkempt Mood: Sad Affect: Flat Patient Behavior: Sedated Speech Pattern: Delayed Voice Loudness: Mildly Soft/Quiet Thought Process: Circumstantial Thought Disorder: Being Controlled Hallucinations: Denies Suicidal Ideation: Denies Homicidal Ideation: Denies Insight/Judgement: Fair Sleep: Difficulty falling asleep Appetite: Weight gain Muscle strength/Tone: Mild Hypotonicity Gait/Station: Shuffling Additional Comments: Observation. Detox Unit Care Protocol Psychiatric Findings - Problem List ([place] 1, 2,3) (1) Alcohol dependence with uncomplicated withdrawal Current Visit: Yes Status: Acute (2) Cocaine dependence Current Visit: Yes Status: Acute Qualifiers: Substance use status: uncomplicated Qualified Code(s): F14.20 - Cocaine dependence, uncomplicated (3) Arthritis Current Visit: Yes Status: Chronic (4) Nicotine dependence Current Visit: Yes Status: Chronic Qualifiers: Nicotine product type: cigarettes Substance use status: uncomplicated Qualified Code(s): F17.210 - Nicotine dependence, cigarettes, uncomplicated (5) Obesity (BMI 30.0-34.9) Current Visit: Yes Status: Chronic (6) Sickle cell trait Current Visit: Yes Status: Suspected (7) PTSD (post-traumatic stress disorder) Current Visit: No Status: Chronic (8) Schizoaffective disorder Current Visit: No Status: Suspected (9) Schizoaffective disorder, bipolar type Current Visit: No Status: Suspected - Initial Treatment Plan Initial Treatment Plan: Observation. Detox Unit Care Protocol
[2016-10-31] MEDS: metFORMIN HCL 500 MG TABLET (FP) PO SCH ×2 (08:31→17:54)
[2016-10-31 09:54] LABS: MCH 30.3 pg (25.7-33.7); MCHC 33.3 g/dl (32.0-36.0); MEAN PLT VOLUME 8.8 fl (7.5-11.1); PLATELET COUNT 402 K/MM3 (134-434); RDW 14.5 % (11.6-15.6); WHITE BLOOD COUNT 6.6 K/mm3 (4.0-10.0)
[2016-10-31 10:23] LABS: ALBUMIN 3.6 g/dl (3.4-5.0); BILIRUBIN,TOTAL 0.5 mg/dL (0.2-1.0); CALCIUM 9.5 mg/dL (8.5-10.1); CREATININE 1.2 mg/dL (0.55-1.02); TOT PROT 7.4 g/dl (6.4-8.2)
[2016-10-31] MEDS: ATORVASTATIN CA 40 MG TABLET (FP) PO SCH (10:23)
[2016-10-31] MEDS: ASPIRIN 81 MG CHEWABLE TABLETS PO SCH (10:23)
[2016-10-31] MEDS: PRENATAL VITAMINS W/ FOLIC ACID TABLET (FP) PO SCH (10:24)
[2016-10-31] MEDS: PATIENT'S OWN MEDICATION (NON-FORMULARY) (Azithromycin [Azithromycin] 250 MG) PO SCH (10:24)
[2016-10-31] MEDS: NICOTINE 14 MG/24 HOURS TOPICAL PATCH TD SCH (10:25)
[2016-10-31] MEDS: INSULIN (NOVOLOG MIX 70/30) 100 UNITS/ML MDV SQ SCH ×2 (11:00→17:57)
--- NOTE | 2016-10-31 12:53 | EKG ---
Test Reason : Blood Pressure : / mmHG Vent. Rate : 069 BPM Atrial Rate : 069 BPM P-R Int : 136 ms QRS Dur : 080 ms QT Int : 412 ms P-R-T Axes : 070 056 058 degrees QTc Int : 441 ms NORMAL SINUS RHYTHM SEPTAL INFARCT , AGE UNDETERMINED ABNORMAL ECG NO PREVIOUS ECGS AVAILABLE Confirmed by KIRBY LEE MD ([id number]) on 10/31/2016 12:52:59 PM Referred By: Confirmed By:KIRBY LEE MD
[2016-10-31] MEDS: CYCLOBENZAPRINE HCL 10 MG TABLET (FP) PO PRN (13:29)
[2016-10-31] MEDS: guaiFENesin/D-METHORPHAN HB 10 ML UNIT-DOSE CUPS PO PRN (13:30)
--- NOTE | 2016-10-31 21:29 | PN ---
[facility] Progress Note Note: bgm 116 before dinner hold insulin 20 units 70/30 continue detox
[2016-10-31] MEDS: THIAMINE HCL 100 MG TABLET (FP) PO SCH (23:03)
[2016-11-01] MEDS: metFORMIN HCL 500 MG TABLET (FP) PO SCH ×2 (06:12→17:47)
[2016-11-01] MEDS: chlordiazePOXIDE HCL 25 MG CAPSULE PO SCH ×2 (06:12→10:44)
[2016-11-01] MEDS: CYCLOBENZAPRINE HCL 10 MG TABLET (FP) PO PRN (06:12)
[2016-11-01] MEDS: guaiFENesin/D-METHORPHAN HB 10 ML UNIT-DOSE CUPS PO PRN (06:13)
[2016-11-01] MEDS: ACETAMINOPHEN 325 MG TABLET (FP) PO PRN (06:15)
[2016-11-01] MEDS: INSULIN (NOVOLOG MIX 70/30) 100 UNITS/ML MDV SQ SCH ×2 (07:09→17:48)
[2016-11-01] MEDS ORDERED: IBUPROFEN 400 MG TABLET (FP) PO PRN (10:31)
--- NOTE | 2016-11-01 10:31 | PN ---
[facility] CIWA - CIWA Score Nausea/Vomitin-No Nausea/No Vomiting Muscle Tremors: 4-Moderate,w/Arms Extend Anxiety: 3 Agitation: 3 Paroxysmal Sweats: 3 Orientation: 0-Oriented Tacttile Disturbances: 0-None Auditory Disturbances: 0-None Visual Disturbances: 0-None Headache: 0-None Present CIWA-Ar Total Score: 13 S Progress Note (SOAP) Subjective: back pain sweats mild shakes interrupted sleep Objective: 11/01/16 10:30 Vital Signs Temperature 97.2 F L 11/01/16 09:49 Pulse Rate 70 11/01/16 09:49 Respiratory Rate 18 11/01/16 09:49 Blood Pressure 109/67 11/01/16 09:49 O2 Sat by Pulse Oximetry (%) Laboratory Tests 10/30/16 10/30/16 10/31/16 15:00 19:30 06:00 WBC 6.6 D RBC 3.91 Hgb 11.9 Hct 35.6 MCV 91.0 MCHC 33.3 RDW 14.5 Plt Count 402 D MPV 8.8 Sodium Potassium Chloride Carbon Dioxide Anion Gap BUN Creatinine Creat Clearance w eGFR POC Glucometer Random Glucose Calcium Total Bilirubin AST ALT Alkaline Phosphatase Total Protein Albumin Urine Color Straw Urine Appearance Clear Urine pH 5.0 Ur Specific [place] 1.018 Urine Protein Negative Urine Glucose (UA) 3+ H Urine Ketones Negative Urine Blood Negative Urine Nitrite Negative Urine Bilirubin Negative Urine Urobilinogen Negative Ur Leukocyte Esterase Negative RPR Titer Hepatitis C Antibody >11.0 H 10/31/16 10/31/16 10/31/16 06:00 06:00 10:52 WBC RBC Hgb Hct MCV MCHC RDW Plt Count MPV Sodium 140 Potassium 4.5 Chloride 103 Carbon Dioxide 26 Anion Gap 11 BUN 9 D Creatinine 1.2 H D Creat Clearance w eGFR 46.30 POC Glucometer 200 Random Glucose 521 H* D Calcium 9.5 Total Bilirubin 0.5 D AST 7 L D ALT 17 Alkaline Phosphatase 119 H D Total Protein 7.4 D Albumin 3.6 D Urine Color Urine Appearance Urine pH Ur Specific [place] Urine Protein Urine Glucose (UA) Urine Ketones Urine Blood Urine Nitrite Urine Bilirubin Urine Urobilinogen Ur Leukocyte Esterase RPR Titer Nonreactive Hepatitis C Antibody 10/31/16 10/31/16 11/01/16 16:18 21:22 06:11 WBC RBC Hgb Hct MCV MCHC RDW Plt Count MPV Sodium Potassium Chloride Carbon Dioxide Anion Gap BUN Creatinine Creat Clearance w eGFR POC Glucometer 116 218 214 Random Glucose Calcium Total Bilirubin AST ALT Alkaline Phosphatase Total Protein Albumin Urine Color Urine Appearance Urine pH Ur Specific [place] Urine Protein Urine Glucose (UA) Urine Ketones Urine Blood Urine Nitrite Urine Bilirubin Urine Urobilinogen Ur Leukocyte Esterase RPR Titer Hepatitis C Antibody awake/alert ambulating no acute distress Assessment: 11/01/16 10:30 withdrawal sx Plan: continue detox increase fluids lidocaine patch motrin 800mg tid
[2016-11-01] MEDS: PATIENT'S OWN MEDICATION (NON-FORMULARY) (Azithromycin [Azithromycin] 250 MG) PO SCH (10:44)
[2016-11-01] MEDS: PRENATAL VITAMINS W/ FOLIC ACID TABLET (FP) PO SCH (10:44)
[2016-11-01] MEDS: ASPIRIN 81 MG CHEWABLE TABLETS PO SCH (10:44)
[2016-11-01] MEDS: ATORVASTATIN CA 40 MG TABLET (FP) PO SCH (10:44)
[2016-11-01] MEDS ORDERED: LIDOCAINE 5% TOPICAL PATCH TP SCH (10:45)
[2016-11-01] MEDS: NICOTINE 14 MG/24 HOURS TOPICAL PATCH TD SCH (10:49)
[2016-11-01] MEDS ORDERED: chlordiazePOXIDE 5 MG CAPSULE PO SCH (17:00)
[2016-11-01 18:09] VITALS: BP 110/66; PULSE 68; TEMP 97.9
--- NOTE | 2016-11-01 21:03 | DS ---
[facility] Detox Discharge Summary Admission Date: 10/30/16 Discharge Date: 11/01/16 - History Present History: Alcohol Dependence Additional Comments: patient did not want to wait face to face with the provider Pertinent Past History: cocaine dependence asthma diabetes ii hyperlipidemia nicotine dependenc hepatitis c - Physical Exam Results Vital Signs: Vital Signs Temperature 97.9 F 11/01/16 18:08 Pulse Rate 68 11/01/16 18:08 Respiratory Rate 18 11/01/16 18:08 Blood Pressure 110/66 11/01/16 18:08 O2 Sat by Pulse Oximetry (%) Pertinent Admission Physical Exam Findings: withdrawal sx Laboratory Last Values WBC 6.6 K/mm3 (4.0-10.0) D 10/31/16 06:00 RBC 3.91 M/mm3 (3.60-5.2) 10/31/16 06:00 Hgb 11.9 GM/dL (10.7-15.3) 10/31/16 06:00 Hct 35.6 % (32.4-45.2) 10/31/16 06:00 MCV 91.0 fl (80-96) 10/31/16 06:00 MCHC 33.3 g/dl (32.0-36.0) 10/31/16 06:00 RDW 14.5 % (11.6-15.6) 10/31/16 06:00 Plt Count 402 K/MM3 (134-434) D 10/31/16 06:00 MPV 8.8 fl (7.5-11.1) 10/31/16 06:00 Sodium 140 mmol/L (136-145) 10/31/16 06:00 Potassium 4.5 mmol/L (3.5-5.1) 10/31/16 06:00 Chloride 103 mmol/L (98-107) 10/31/16 06:00 Carbon Dioxide 26 mmol/L (21-32) 10/31/16 06:00 Anion Gap 11 (8-16) 10/31/16 06:00 BUN 9 mg/dL (7-18) D 10/31/16 06:00 Creatinine 1.2 mg/dL (0.55-1.02) H D 10/31/16 06:00 Creat Clearance w eGFR 46.30 (>60) 10/31/16 06:00 POC Glucometer 132 UNITS (()) 11/01/16 16:42 Random Glucose 521 mg/dL (74-106) H* D 10/31/16 06:00 Calcium 9.5 mg/dL (8.5-10.1) 10/31/16 06:00 Total Bilirubin 0.5 mg/dL (0.2-1.0) D 10/31/16 06:00 AST 7 U/L (15-37) L D 10/31/16 06:00 ALT 17 U/L (12-78) 10/31/16 06:00 Alkaline Phosphatase 119 U/L (45-117) H D 10/31/16 06:00 Total Protein 7.4 g/dl (6.4-8.2) D 10/31/16 06:00 Albumin 3.6 g/dl (3.4-5.0) D 10/31/16 06:00 Urine Color Straw 10/30/16 19:30 Urine Appearance Clear 10/30/16 19:30 Urine pH 5.0 (5.0-8.0) 10/30/16 19:30 Ur Specific [place] 1.018 (1.001-1.035) 10/30/16 19:30 Urine Protein Negative (NEGATIVE) 10/30/16 19:30 Urine Glucose (UA) 3+ (NEGATIVE) H 10/30/16 19:30 Urine Ketones Negative (NEGATIVE) 10/30/16 19:30 Urine Blood Negative (NEGATIVE) 10/30/16 19:30 Urine Nitrite Negative (NEGATIVE) 10/30/16 19:30 Urine Bilirubin Negative (NEGATIVE) 10/30/16 19:30 Urine Urobilinogen Negative E.U./dl (0.2-1.0) 10/30/16 19:30 Ur Leukocyte Esterase Negative (NEGATIVE) 10/30/16 19:30 RPR Titer Nonreactive (NONREACTIVE) 10/31/16 06:00 Hepatitis C Antibody >11.0 s/co ratio (0.0-0.9) H 10/30/16 15:00 lab noted - Treatment Hospital Course: Detox Protocol Followed, Responded well - Medication Discharge Medications: Ambulatory Orders Aspirin [ASA -] 81 mg PO DAILY #30 tab.chew 07/02/15 Albuterol Sulfate Inhaler - [Ventolin HFA Inhaler -] 2 inh PO Q4H PRN 03/30/16 Atorvastatin Ca [Lipitor] 40 mg PO DAILY 03/30/16 Metformin HCl [Glucophage -] 500 mg PO BID 03/30/16 Insulin NPH Hum/Reg Insulin Hm [Humulin 70-30 Vial] 20 unit SQ ACDIN 06/28/16 Insulin NPH Hum/Reg Insulin Hm [Humulin 70-30 Vial] 40 unit SQ AM 06/28/16 Azithromycin 250 mg PO DAILY 10/30/16 - Diagnosis (1) Alcohol dependence with uncomplicated withdrawal Status: Acute (2) Cocaine dependence Status: Chronic Qualifiers: Substance use status: uncomplicated Qualified Code(s): F14.20 - Cocaine dependence, uncomplicated (3) Asthma Status: Acute Qualifiers: Asthma severity: mild intermittent Asthma complication type: uncomplicated Qualified Code(s): J45.20 - Mild intermittent asthma, uncomplicated (4) DM II (diabetes mellitus, type II), controlled Status: Acute Qualifiers: Diabetes mellitus complication status: without complication Diabetes mellitus terminal system operator insulin use: with prison use Qualified Code(s): E11.9 - Type 2 diabetes mellitus without complications (5) Hypercholesterolemia Status: Acute (6) Nicotine dependence Status: Acute Qualifiers: Nicotine product type: cigarettes Substance use status: in withdrawal Qualified Code(s): F17.213 - Nicotine dependence, cigarettes, with withdrawal (7) Schizoaffective disorder Status: Suspected Qualifiers: Schizoaffective disorder type: bipolar Qualified Code(s): F25.0 - Schizoaffective disorder, bipolar type - AMA Did Patient Leave Against Medical Advice: Yes (aggressive, anger out burst, insists to leave the unit)
[2016-11-02] MEDS ORDERED: chlordiazePOXIDE HCL 10 MG CAPSULE PO SCH (17:00)
== END 2016-11-01 18:22 | disposition left against medical advice (07) | DRG 770 ==
LOC: YASAS 12:15 → Y6N 14:45
PROVIDERS: ADMIT Internal Medicine Addiction Medicine; ATTEND Internal Medicine Addiction Medicine
PROC: HZ2ZZZZ Detoxification Services for Substance Abuse Treatment (ICD-10-PCS; principal; 2016-11-01)
DX: F10.230 Alcohol dependence with withdrawal, uncomplicated (principal); F14.20 Cocaine dependence, uncomplicated; F17.213 Nicotine dependence, cigarettes, with withdrawal; F25.0 Schizoaffective disorder, bipolar type; F43.10 Post-traumatic stress disorder, unspecified; E11.9 Type 2 diabetes mellitus without complications; Z79.4 Long term (current) use of insulin; Z79.84 Long term (current) use of oral hypoglycemic drugs; E78.00 Pure hypercholesterolemia, unspecified; M12.9 Arthropathy, unspecified; D57.3 Sickle-cell trait; E66.09 Other obesity due to excess calories; Z68.34 Body mass index [BMI] 34.0-34.9, adult
CPT/HCPCS: 36415; 80053; 81003; 85027; 86593; 87522; 93005; 93010